=== PATIENT | male | born 1980 | race Caucasian/White ===

== ENCOUNTER 2016-07-05 08:19 | Day surgery (SDC) | payer MEDICAID ==
[2016-07-05] MEDS ORDERED: BACITRACIN INJ 50,000 UNIT VIAL INJ PRN (08:50)
[2016-07-05 09:53] LABS: ANION GAP 19 (5-19); BLOOD UREA NITROGEN 114 mg/dL (7-20); CALCIUM 10.4 mg/dL (8.4-10.2); CARBON DIOXIDE 24 mmol/L (22-30); CHLORIDE 97 mmol/L (98-107); CREATININE RESULT 9.42 mg/dL (0.52-1.25); GLUCOSE 109 mg/dL (75-110); POTASSIUM 3.8 mmol/L (3.6-5.0); SODIUM 140.3 mmol/L (137-145)
[2016-07-05] MEDS ORDERED: MIDAZOLAM 2 MG/2 ML INJ ONE (11:07)
[2016-07-05] MEDS ORDERED: FENTANYL CITRATE INJ/PF 100 MCG/2 ML AMPUL ONE (11:07)
[2016-07-05] MEDS ORDERED: LIDOCAINE 0.5% INJ-PF (5 MG/ML) 50 ML SDV ONE (11:10)
--- NOTE | 2016-07-05 11:30 | PDOC H&P ---
General Chief Complaint: The patient was admitted for insertion of a PermCath catheter. He is on hemodialysis for end-stage renal disease. A recently placed left arm fistula is barely palpable. He is therefore admitted for insertion of a new PermCath catheter. - Current Medications/Allergies Home Medications: Sodium Bicarbonate [Sodium Bicarbonate 650 mg Tablet] 30 mg PO DAILY 09/30/15 Sevelamer Carbonate [Renvela] 800 mg PO DAILY 05/07/16 Allergies/Adverse Reactions: No Known Allergies Allergy (Verified 07/05/16 08:55) Past Medical History Cardiac Medical History: Reports: Hypertension - HX OF Denies: Coronary Artery Disease, Myocardial Infarction Pulmonary Medical History: Denies: Asthma, Bronchitis, Chronic Obstructive Pulmonary Disease (COPD), Pneumonia Neurological Medical History: Denies: Seizures Musculoskeltal Medical History: Denies: Arthritis Psychiatric Medical History: Denies: Depression Hematology: Denies: Anemia Past Surgical History Past Surgical History: Reports: Other - Clipping of brain aneurysm. Within 2015. Family History Family History: Reviewed & Not Pertinent Parental Family History Reviewed: No Children Family History Reviewed: No Sibling(s) Family History Reviewed.: No Social History Smoking Status: Never Smoker Frequency of Alcohol Use: None Hx Recreational Drug Use: No Physical Exam Vital Signs: Temp Pulse Resp BP Pulse Ox 97.7 F 110 H 16 129/83 H 99 07/05/16 08:55 07/05/16 08:55 07/05/16 08:55 07/05/16 08:55 07/05/16 08:55 Intake & Output 07/04/16 07/05/16 07/06/16 06:59 06:59 06:59 Weight 98.883 kg Additional comments: A well-developed well-nourished male. No acute distress. Eyes membranes is pink and moist, sclerae anicteric. Respiratory no shortness of breath. Breath sounds are normal and equal bilaterally. Cardiac: Heart sounds 1 and 2 heard, no murmurs. Upper extremities show normal range of movement and pulsatile to the radials. Normal capillary refill. A cephalic to brachial fistula is appreciated. In the left upper extremity. Somewhat soft, suggesting minimal function. Psychiatric the patient is alert, oriented, judgment, memory, insight normal Impression/Plan Impression: #1 dislodged PermCath catheter. #2 end-stage renal disease on hemodialysis. #3 recent surgery for cerebral aneurysm. Plan: In this patient who is dependent on dialysis for treatment for end-stage renal disease insertion of a PermCath is to be done. The procedure, its risks, benefits, expected outcome alternatives of minute to the patient and he wishes to proceed. We will give him a dose of antibiotic, vancomycin and I will discuss with his drilling plant operator the wisdom of continuing antibiotics for perhaps up to 2 weeks. This is because the dislodgment is suspicious for a low-grade infection. We'll try to imply another side but if necessary will replaced in the right internal jugular.
[2016-07-05] MEDS ORDERED: VANCOMYCIN HCL 500 MG in DEXTROSE 5%-WATER 100 ML IV ONE (12:00)
--- NOTE | 2016-07-05 13:19 | PDOC DISCHARGE SUMMARY ---
Discharge Summary (SDC) - Discharge Final Diagnosis: #1 end-stage renal disease on hemodialysis. #2 history of moran aneurysm surgery. Date of Surgery: 07/05/16 Discharge Date: 07/05/16 Condition: Fair Treatment or Instructions: #1 activities within moderation encouraged. #2 follow up in my office by appointment in about 1 week. Call for appointment. #3 the wounds covered clean and dry until office visit. #4 hold off on school/work until evaluation in office. #5 may shower in 48 hours, keep operated area as dry as possible. #6 discharge from ambulatory to when ASU criteria met. #7 medications per medication reconciliation sheet. Discharge Diet: Other (Comments) - Renal Respiratory Treatments at Home: Deep Breathing/Coughing Discharge Activity: Activity As Tolerated Report the Following to Your Physician Immediately: Unusual Bleeding
--- NOTE | 2016-07-05 13:22 | Operative Report ---
Operative Report DATE OF SURGERY: 07/05/16 PREOPERATIVE DIAGNOSIS: #1 end-stage renal disease on hemodialysis. #2 history of moran aneurysm surgery. POSTOPERATIVE DIAGNOSIS: #1 end-stage renal disease on hemodialysis. #2 history of moran aneurysm surgery. OPERATION: #1 ultrasound guided needle access into left internal jugular vein. #2 insertion of PermCath catheter via left internal jugular vein. #3 and interpretation. SURGEON: SETH UGARTE JAIL GUARD: none ANESTHESIA: Moderate Sedation TISSUE REMOVED OR ALTERED: Not applicable. COMPLICATIONS: None ESTIMATED BLOOD LOSS: 2 mL. INTRAOPERATIVE FINDINGS: Satisfactorily sized left internal jugular vein to support permacatheter. Good position and function of the catheter. The tip well down in the right atrium. Fracture flow of contrast through the right atrium, ventricle and pulmonary outflow tract. PROCEDURE: After obtaining informed consent, the patient was taken to the Yarn Texture Machine Operator and positioned supine. The left neck and chest were prepared with chlorhexidine and draped out with sterile linen. After the " universal timeout", in which it was verified that the patient continued to receive antibiotic, the procedure commenced. A steriley sheathed ultrasound probe was used to evaluate the right internal jugular vein. Local anesthesia was infiltrated adjacent to the probe. Access into the right internal jugular vein was obtained using a micropuncture needle, followed by micropuncture wire and then a micropuncture catheter. This was followed by introduction of a 0.035 guidewire the tip of which was placed down into the inferior vena cava . A 28 cm long perm catheter was now positioned over the chest and an exit site marked and locally anesthetized ,the catheter was placed between the 2 incisions. Proximally, the catheter was now positioned using a peel-away sheath, after dilation. Easy ingress of heparinized solution and egress of blood obtained through both ports. A completion angiogram was done by injecting contrast. The findings were as dictated. The neck incision was now closed using interrupted 3-0 PDS to the subcutaneous tissues, the catheter was anchored at the exit site using 3- 0 PDS. A Biopatch device was now placed adjacent to the catheter. Dressings were applied and the procedure concluded. Exposure time: 0.7 minutes. Exposure: 26 cGy per centimeters squared. Contrast amount: 5 mL of [id number]-R-826 low osmolality. Copies of the dictated operative report for Dr. Seth aMrroquin MD.concluded. Copies of the dictated operative report for Dr. Seth Marroquin MD.
[2016-07-05 14:50] VITALS: BP 121/79
== END 2016-07-05 14:53 | disposition home or self-care (01) ==
LOC: CCL 08:19
PROVIDERS: ATTEND Surgery
PROC: 05HN33Z Insertion of Infusion Device into Left Internal Jugular Vein, Percutaneous Approach (ICD-10-PCS; principal; 2016-07-05)
DX: N18.6 End stage renal disease (principal); Z99.2 Dependence on renal dialysis
CPT/HCPCS: 36415; 80048; 36558; 76937; 77001; C1752; Q9967; J2250; J3490 ×2; J3010; J3370; J1644

== ENCOUNTER 2016-07-12 11:38 | Day surgery (SDC) | payer MEDICAID ==
[2016-07-12] MEDS ORDERED: CEFAZOLIN SODIUM 1 GM in DEXTROSE 5%-WATER 50 ML IV SCH (12:15)
[2016-07-12] MEDS ORDERED: MIDAZOLAM 2 MG/2 ML INJ ONE (12:36)
[2016-07-12] MEDS ORDERED: FENTANYL CITRATE INJ/PF 100 MCG/2 ML AMPUL ONE (12:36)
[2016-07-12] MEDS ORDERED: HEPARIN SOD (PORCINE) 5,000 UNIT/ML 1 ML SYRINGE ONE (12:36)
[2016-07-12] MEDS ORDERED: CEFAZOLIN INJ 1 GM VIAL ONE (12:46)
[2016-07-12] MEDS ORDERED: LIDOCAINE 0.5% INJ-PF (5 MG/ML) 50 ML SDV ONE (12:56)
--- NOTE | 2016-07-12 13:02 | PDOC H&P ---
General Chief Complaint: The patient has an arteriovenous fistula left arm which is not accessible for use. He is being dialyzed through a perm catheter. He is admitted today for fistula angiogram in the hope of enlarging it to accessibility. - Diagnosis (1) Dialysis AV fistula malfunction Is this a Current Diagnosis?: Yes (2) End-stage renal disease on hemodialysis Is this a Current Diagnosis?: Yes (3) History of cerebral aneurysm repair Is this a Current Diagnosis?: Yes (4) PCK (polycystic kidney disease) Is this a Current Diagnosis?: Yes - Current Medications/Allergies Home Medications: Sodium Bicarbonate [Sodium Bicarbonate 650 mg Tablet] 30 mg PO DAILY 09/30/15 Sevelamer Carbonate [Renvela] 800 mg PO DAILY 05/07/16 Allergies/Adverse Reactions: No Known Allergies Allergy (Verified 07/05/16 08:55) Past Medical History Cardiac Medical History: Reports: Hypertension - HX OF Denies: Coronary Artery Disease, Myocardial Infarction Pulmonary Medical History: Denies: Asthma, Bronchitis, Chronic Obstructive Pulmonary Disease (COPD), Pneumonia Neurological Medical History: Reports: Seizures Musculoskeltal Medical History: Denies: Arthritis Psychiatric Medical History: Denies: Depression Hematology: Denies: Anemia Past Surgical History Past Surgical History: Reports: Other - Clipping of brain aneurysm. Within 2015. Family History Family History: Reviewed & Not Pertinent Parental Family History Reviewed: No Children Family History Reviewed: No Sibling(s) Family History Reviewed.: No Social History Smoking Status: Former Smoker Frequency of Alcohol Use: None Hx Recreational Drug Use: No Physical Exam Vital Signs: Temp Pulse Resp BP Pulse Ox 98.3 F 96 16 127/82 H 98 07/12/16 12:55 07/12/16 12:55 07/12/16 12:55 07/12/16 12:55 07/12/16 12:55 Intake & Output 07/11/16 07/12/16 07/13/16 06:59 06:59 06:59 Weight 98 kg Additional comments: A well-developed well-nourished male. Mildly increased body habitus. No acute distress. Eyes membranes is pink and moist, sclerae anicteric. Respiratory no shortness of breath. Breath sounds are normal and equal bilaterally. Cardiac: Heart sounds 1 and 2 heard, no murmurs. Upper extremities show normal range of movement and pulsatile to the radials. Normal capillary refill. A cephalic to brachial fistula is appreciated. In the left upper extremity. Somewhat firm, suggesting cephalad stenosis. Psychiatric the patient is alert, oriented, judgment, memory, insight normal Impression/Plan Plan: In this patient with a fairly new arteriovenous fistula malfunction is appreciated. The bruit is obstructive with only about 4 cm palpable. The hope is to the fistula and to dilated distally so as to obtain a portion of fistula useful for for a dialysis access. The risks benefits expected outcome alternative are for minute to the patient.
--- NOTE | 2016-07-12 15:00 | PDOC DISCHARGE SUMMARY ---
Discharge Summary (SDC) - Discharge Final Diagnosis: #1 .malfunctioning arteriovenous fistula. #2 end-stage renal disease on hemodialysis. #3 history of cerebral aneurysm. #[address] Date of Surgery: 07/12/16 Discharge Date: 07/12/16 Condition: Fair Forms: ASU Anesthesia D/C Instruction, Discharge POC-Surgical Service Treatment or Instructions: #1 activities within moderation encouraged. #2 follow up in my office by appointment in about 1 week. Call for appointment. #3 the wounds covered clean and dry until office visit. #4 hold off on school/work until evaluation in office. #5 may shower in 48 hours, keep operated area as dry as possible. #6 discharge from ambulatory to when ASU criteria met. #7 medications per medication reconciliation sheet. Referrals: SETH KINGSLEY MD [ACTIVE STAFF] - Respiratory Treatments at Home: Deep Breathing/Coughing Discharge Activity: Activity As Tolerated, Balance Activity w/Rest, No Driving, No Lifting Over 10 Pounds, Slowly Increase Activity Home Care Assistance: None Needed Report the Following to Your Physician Immediately: Shortness of Breath, Fever over 101 Degrees, Unusual Bleeding, Redness, Swelling, Warmth, Numbness
--- NOTE | 2016-07-12 15:37 | Operative Report ---
Operative Report DATE OF SURGERY: 07/12/16 PREOPERATIVE DIAGNOSIS: #1 malfunctioning AV fistula. #2 end-stage renal disease on hemodialysis. #3 history of cerebral aneurysm. #[address] POSTOPERATIVE DIAGNOSIS: #1 malfunctioning AV fistula. #2 end-stage renal disease on hemodialysis. #3 history of cerebral aneurysm. #[address] OPERATION: #1 ultrasound guided access in left forearm AV fistula. #2 stage. # 3 angiogram and interpretation. SURGEON: SETH UGARTE CW OPERATOR: none ANESTHESIA: Moderate Sedation TISSUE REMOVED OR ALTERED: Not applicable. COMPLICATIONS: None ESTIMATED BLOOD LOSS: 2 mL. INTRAOPERATIVE FINDINGS: Of a palpable AV fistula. Retrograde. Based in the cephalic to brachial about 5 cm above the elbow. The fistula is easily palpable for a good 10 cm including above and below the elbow. The lead the fistula is not palpable nor visualized on ultrasound and diligent manipulation able to access the cephalic vein cephalad to the anastomosis. A number of stenosis each about 80% in the accessible area of the fistula were dilated up to 7 mm. The post procedure demonstrated much better of outflow although retrograde. Further intervention may be needed but there is significant hope that this could provide good access for this patient for the future. PROCEDURE: PROCEDURE: After verifying the procedure and having obtained informed consent, the patient's left arm and forearm were prepared with Chlorhexidine and draped out with sterile linen. Local anesthesia infiltrated. Percutaneous access into the fistula ,[retrograde], obtained about [20 cm] from the arteriovenous anastomosis using a micro puncture needle followed by micro puncture wire and then a micro puncture catheter. This was done on ultrasound guidance using real-time access into the vein. Ultrasound was also used to size the vein. Angiogram demonstrated the aforementioned findings. Angioplasty was elected. A 0.035 [place] wire was inserted, and over this, a 6 [place] short introducer was placed, this was followed by a 7 mm angioplasty balloon . Angioplasty was now done just before the anastomosis and perianastomotic segment. This was done very carefully and in the up to 10 emmanuel sustained for 2 minutes. Angiogram demonstrated successful outcome. Completion angiogram demonstrated [satisfactory result]. The instrumentation was now withdrawn over a short piece of catheter and a pressure for 10 minutes. Dressings applied, procedure concluded. Exposure time: 3 minutes Radiation: 3 julia per centimeter squared Contrast: 25 mL of Isovue-M 300 low osmolality. DICTATING PHYSICIAN: SETH KINGSLEY M.D. cc: SETH KINGSLEY M.D. ([id number]) >>
[2016-07-12 16:27] VITALS: BP 118/71
== END 2016-07-12 15:30 | disposition home or self-care (01) ==
LOC: CCL 11:38
PROVIDERS: ATTEND Surgery
PROC: 057F3DZ Dilation of Left Cephalic Vein with Intraluminal Device, Percutaneous Approach (ICD-10-PCS; principal; 2016-07-12)
DX: T82.858A Stenosis of other vascular prosthetic devices, implants and grafts, initial encounter (principal); Y83.2 Surgical operation with anastomosis, bypass or graft as the cause of abnormal reaction of the patient, or of later complication, without mention of misadventure at the time of the procedure; N18.6 End stage renal disease; Z99.2 Dependence on renal dialysis; Z79.899 Other long term (current) drug therapy; Q61.3 Polycystic kidney, unspecified
CPT/HCPCS: 36902; 76937; C1752; C1725; C1887; Q9967; C1769; J2250; J1644 ×2; J0690; J3010; J3490; 36901

== ENCOUNTER 2016-07-23 14:02 | Emergency (ER) | payer MEDICAID ==
--- NOTE | 2016-07-23 14:17 | ER Document Report ---
ED Medical Screen (RME) - General Stated Complaint: DIFFICULTY BREATHING,LEFT BACK PAIN Time seen by provider: 14:12 Mode of Arrival: Wheelchair Information source: Patient Notes: 36-year-old male presents to ED for sharp upper back pain that sometimes goes through to his chest. He had a dialysis catheter placed on the left chest 2 or 3 weeks ago. He states that the pain is stabbing. I have greeted and performed a rapid initial assessment of this patient. A comprehensive ED assessment and evaluation of the patient, analysis of test results and completion of medical decision making process will be conducted by an additional ED providers. TRAVEL OUTSIDE OF THE [place] IN LAST 30 DAYS: No - Related Data Allergies/Adverse Reactions: No Known Allergies Allergy (Verified 07/23/16 14:12) Past Medical History - Past Medical History Cardiac Medical History: Reports: Hx Hypertension - HX OF Denies: Hx Coronary Artery Disease, Hx Heart Attack Pulmonary Medical History: Denies: Hx Asthma, Hx Bronchitis, Hx COPD, Hx Pneumonia Neurological Medical History: Reports: Hx Seizures. Denies: Hx Cerebrovascular Accident Musculoskeltal Medical History: Denies Hx Arthritis Psychiatric Medical History: Denies: Hx Depression Past Surgical History: Reports: Other - Clipping of brain aneurysm. Within 2015. - Immunizations Hx Diphtheria, Pertussis, Tetanus Vaccination: Yes - unk Physical Exam - Vital signs Vitals: Temp Pulse Resp BP Pulse Ox 97.2 F 113 H 20 151/85 H 100 07/23/16 14:11 07/23/16 14:11 07/23/16 14:11 07/23/16 14:11 07/23/16 14:11 Course - Vital Signs Vital signs: Temp Pulse Resp BP Pulse Ox 97.2 F 113 H 20 151/85 H 100 07/23/16 14:11 07/23/16 14:11 07/23/16 14:11 07/23/16 14:11 07/23/16 14:11
--- NOTE | 2016-07-23 15:08 | ER Document Report ---
ED General Pain - General Time seen by provider: 15:00 Mode of Arrival: Wheelchair Information source: Patient TRAVEL OUTSIDE OF THE [place] IN LAST 30 DAYS: No - HPI Onset: This afternoon Quality of pain: Sharp, Stabbing <ANA JC - Last Filed: 07/23/16 18:03> <ALFREDO DUKEHANMAX GHOSH - Last Filed: 07/23/16 23:29> - General Chief Complaint: Back Pain Stated Complaint: DIFFICULTY BREATHING,LEFT BACK PAIN Notes: Patient is a 36-year-old male presents the emergency department with complaints of back pain. Patient states that while he was eating lunch he started having some stabbing back pain. Patient states that his pain radiated around into his abdomen one time. Patient states that his pain is exacerbated while breathing deeply. Patient is in renal failure and has dialysis tomorrow07/24. Patient's dialysis doctor is Dr. Prince. Patient has no known allergies. (ANA JC) - Related Data Allergies/Adverse Reactions: No Known Allergies Allergy (Verified 07/23/16 14:12) Past Medical History - General Information source: Patient - Social History Smoking Status: Unknown if Ever Smoked Chew tobacco use (# tins/day): No Frequency of alcohol use: None Drug Abuse: None Family History: None, Reviewed & Not Pertinent Patient has suicidal ideation: No Patient has homicidal ideation: No - Past Medical History Cardiac Medical History: Reports: Hx Hypertension - HX OF Neurological Medical History: Reports: Hx Seizures Past Surgical History: Reports: Other - Clipping of brain aneurysm. Within 2016. - Immunizations Hx Diphtheria, Pertussis, Tetanus Vaccination: Yes - unk <ANA JC - Last Filed: 07/23/16 18:03> Review of Systems - Review of Systems Constitutional: No symptoms reported EENT: No symptoms reported Cardiovascular: No symptoms reported Respiratory: See HPI, Hurts to breathe Gastrointestinal: No symptoms reported Genitourinary: No symptoms reported Male Genitourinary: No symptoms reported Musculoskeletal: See HPI, Back pain Skin: No symptoms reported Hematologic/Lymphatic: No symptoms reported Neurological/Psychological: No symptoms reported -: Yes All other systems reviewed and negative <ANA JC - Last Filed: 07/23/16 18:03> Physical Exam - Vital signs Interpretation: Normal - General General appearance: Appears well, Alert - HEENT Head: Normocephalic, Atraumatic Eyes: Normal Pupils: PERRL - Respiratory Respiratory status: No respiratory distress Chest status: Tender - Tenderness to palpation of posterior left upper back, lateral chest wall on the left, Pain on movement Breath sounds: Normal Chest palpation: Normal - Cardiovascular Rhythm: Regular Heart sounds: Normal auscultation Murmur: No - Abdominal Inspection: Normal Distension: No distension Bowel sounds: Normal Tenderness: Nontender Organomegaly: No organomegaly - Back Back: Normal, Nontender - Extremities General upper extremity: Normal inspection, Nontender, Normal color, Normal ROM , Normal temperature General lower extremity: Normal inspection, Nontender, Normal color, Normal ROM , Normal temperature, Normal weight bearing. No: Marco Antonio's sign - Neurological Neuro grossly intact: Yes Cognition: Normal Orientation: AAOx4 Sriram Coma Scale Eye Opening: Spontaneous P[place] Coma Scale Verbal: Oriented Sriram Coma Scale Motor: Obeys Commands Prewitt Coma Scale Total: 15 Speech: Normal Motor strength normal: LUE, RUE, LLE, RLE Sensory: Normal - Psychological Associated symptoms: Normal affect, Normal mood - Skin Skin Temperature: Warm Skin Moisture: Dry Skin Color: Normal <ANUSHKA DUKE - Last Filed: 07/23/16 23:29> - Vital signs Vitals: Temp Pulse Resp BP Pulse Ox 97.2 F 113 H 20 151/85 H 100 07/23/16 14:11 07/23/16 14:11 07/23/16 14:11 07/23/16 14:11 07/23/16 14:11 (ANA JC) (ANUSHKA DUKE) Course - Laboratory Result Diagrams: 07/23/16 14:28 07/23/16 14:28 - Consults Dr. Prince Time consulted: 17:10 <ANA JC - Last Filed: 07/23/16 18:03> - Laboratory Result Diagrams: 07/23/16 14:28 07/23/16 14:28 - Diagnostic Test Radiology reviewed: Reports reviewed <ANUSHKA DUKE - Last Filed: 07/23/16 23:29> - Re-evaluation Re-evalutation: 07/23/16 Patient with elevated d-dimer. Otherwise no findings. Patient is resting comfortably on the bed after pain medication states that he is feeling much better. VQ scan is negative for pulmonary embolus. Patient will be discharged home and is to follow-up with his community engagement leader. He is to go to dialysis tomorrow. Return immediately if any worsening or concerning symptoms. Stable for discharge home. (ANUSHKA DUKE) - Vital Signs Vital signs: Temp Pulse Resp BP Pulse Ox 98.4 F 111 H 20 138/74 H 97 07/23/16 19:40 07/23/16 19:40 07/23/16 19:40 07/23/16 19:40 07/23/16 19:40 (ANA JC) (ANUSHKA DUKE) - Laboratory Laboratory results interpreted by me: 07/23/16 07/23/16 07/23/16 14:28 14:28 14:28 RDW 15.9 H Seg Neutrophils % 79.1 H Lymphocytes % 11.6 L D-Dimer 2.58 H Chloride 94 L BUN 64 H Creatinine 8.13 H Est GFR ( Amer) 9 L Est GFR (Non-Af Amer) 8 L Glucose 161 H Calcium 10.6 H (ANUSHKA DUKE) - Consults Dr. Prince Reason for consultation: 07/23/16 17:[address] Prince for recommendations for patient, will call back. 07/23/16 17:[address] Prince who gives recommendations of care for patient. (ANA JC) Discharge <ANA JC - Last Filed: 07/23/16 18:03> <ANUSHKA DUKE - Last Filed: 07/23/16 23:29> - Discharge Clinical Impression: End-stage renal disease on hemodialysis Back pain Qualifiers: Back pain location: thoracic back pain Chronicity: acute Back pain laterality: left Qualified Code(s): M54.6 - Pain in thoracic spine Condition: Stable Disposition: HOME, SELF-CARE Prescriptions: Oxycodone HCl/Acetaminophen [Percocet 5-325 mg Tablet] 1 tab PO Q4H PRN #15 tablet PRN Reason: Referrals: EUNICE PRINCE MD [ACTIVE STAFF] - Follow up in 3-5 days Scribe Attestation: 07/23/16 23:29 I personally performed the services described in the documentation, reviewed and edited the documentation which was dictated to the scribe in my presence, and it accurately records my words and actions. (ANUSHKA DUKE) Scribe Documentation - Scribe Written by Scribkurtis:: Ana Jc 07/23/16 18:00 acting as scribe for :: Ralph <ANA JC - Last Filed: 07/23/16 18:03>
[2016-07-23 15:21] LABS: ABSOLUTE EOSINOPHILS # (AUTO) 0.1 10^3/uL (0.0-0.6); ABSOLUTE LYMPHOCYTES (AUTO) 0.8 10^3/uL (0.5-4.7); ABSOLUTE MONOCYTES (AUTO) 0.5 10^3/uL (0.1-1.4); ABSOLUTE NEUT (AUTO) 5.5 10^3/uL (1.7-8.2); BASOPHILS % (AUTO) 0.6 % (0-2); EOSINOPHILS % (AUTO) 2.1 % (0-6); HEMATOCRIT 43.5 % (37.9-51.0); HEMOGLOBIN 14.3 g/dL (13.5-17.0); HGB HCT DIFFERENCE -0.6; LYMPHOCYTES % (AUTO) 11.6 % (13-45); MEAN CORPUSCULAR HEMOGLOBIN 29.7 pg (27.0-33.4); MEAN CORPUSCULAR VOLUME 90 fl (80-97); MONOCYTES % (AUTO) 6.6 % (3-13); RED BLOOD COUNT 4.84 10^6/uL (4.35-5.55); RED CELL DISTRIBUTION WIDTH 15.9 % (11.5-14.0); SEGMENTED NEUTROPHILS % (AUTO) 79.1 % (42-78); WHITE BLOOD COUNT 6.9 10^3/uL (4.0-10.5)
[2016-07-23 15:49] LABS: PROTHROMBIN TIME 12.9 SEC (11.4-15.4)
[2016-07-23 16:03] LABS: ALANINE AMINOTRANSFERASE 42 U/L (21-72); ALKALINE PHOSPHATASE 97 U/L (38-126); ANION GAP 17 (5-19); ASPARTATE AMINO TRANSFERASE 17 U/L (17-59); BILIRUBIN,TOTAL 0.5 mg/dL (0.2-1.3); BLOOD UREA NITROGEN 64 mg/dL (7-20); CALCIUM 10.6 mg/dL (8.4-10.2); CARBON DIOXIDE 28 mmol/L (22-30); CHLORIDE 94 mmol/L (98-107); CREATININE RESULT 8.13 mg/dL (0.52-1.25); GLUCOSE 161 mg/dL (75-110); POTASSIUM 4.6 mmol/L (3.6-5.0); SODIUM 139.1 mmol/L (137-145); TOTAL PROTEIN 7.2 g/dL (6.3-8.2)
[2016-07-23] MEDS ORDERED: MORPHINE SULFATE 10 MG/ML INJ IV ONE (16:28)
[2016-07-23] MEDS ORDERED: ONDANSETRON HCL INJ/PF 4 MG/2 ML SDV IV ONE (16:28)
[2016-07-23 19:45] VITALS: BP 138/74
== END 2016-07-23 19:45 | disposition home or self-care (01) ==
LOC: ER 14:02
DX: M54.6 Pain in thoracic spine (principal); I12.0 Hypertensive chronic kidney disease with stage 5 chronic kidney disease or end stage renal disease; N18.6 End stage renal disease; Z99.2 Dependence on renal dialysis
CPT/HCPCS: 99284; 96374; 96375; 36415; 85025; 85610; 85730; 80053; 84484; 85379; 71020; 78582; A9540; A9567; J2270; J2405; Q9969

== ENCOUNTER 2016-08-02 05:37 | Day surgery (SDC) | payer MEDICAID ==
[2016-08-02 06:14] LABS: HEMATOCRIT 39.6 % (37.9-51.0); HEMOGLOBIN 13.8 g/dL (13.5-17.0); HGB HCT DIFFERENCE 1.8; MEAN CORPUSCULAR HEMOGLOBIN 30.7 pg (27.0-33.4); MEAN CORPUSCULAR HGB CONC 34.8 g/dL (32.0-36.0); MEAN CORPUSCULAR VOLUME 88 fl (80-97); RED BLOOD COUNT 4.49 10^6/uL (4.35-5.55); RED CELL DISTRIBUTION WIDTH 16.5 % (11.5-14.0); WHITE BLOOD COUNT 7.6 10^3/uL (4.0-10.5)
[2016-08-02 06:24] LABS: PARTIAL THROMBOPLASTIN TIME 29.2 SEC (23.5-35.8)
[2016-08-02 06:35] LABS: ANION GAP 18 (5-19); BLOOD UREA NITROGEN 82 mg/dL (7-20); CALCIUM 9.9 mg/dL (8.4-10.2); CARBON DIOXIDE 20 mmol/L (22-30); CHLORIDE 102 mmol/L (98-107); GLUCOSE 102 mg/dL (75-110); POTASSIUM 3.5 mmol/L (3.6-5.0); SODIUM 140.3 mmol/L (137-145)
[2016-08-02] MEDS ORDERED: LIDOCAINE 0.5% INJ-PF (5 MG/ML) 50 ML SDV ONE (07:12)
[2016-08-02] MEDS ORDERED: MIDAZOLAM 2 MG/2 ML INJ ONE (07:34)
[2016-08-02] MEDS ORDERED: FENTANYL CITRATE INJ/PF 100 MCG/2 ML AMPUL ONE (07:34)
[2016-08-02] MEDS ORDERED: HEPARIN SOD (PORCINE) 5,000 UNIT/ML 1 ML SYRINGE ONE (07:35)
[2016-08-02] MEDS ORDERED: BACITRACIN INJ 50,000 UNIT VIAL IR PRN (07:54)
[2016-08-02] MEDS ORDERED: CEFAZOLIN INJ 1 GM VIAL ONE (08:23)
--- NOTE | 2016-08-02 09:13 | PDOC DISCHARGE SUMMARY ---
Discharge Summary (SDC) - Discharge Final Diagnosis: AV fistula malfunction. #2 end-stage renal disease. #3 history of cerebral aneurysm. Date of Surgery: 08/02/16 Discharge Date: 08/02/16 Condition: Fair Treatment or Instructions: #1 discharge patient home after achieving ASU criteria. #2 continue medications per medication reconciliation sheet. #3 follow-up in office by appointment in about 1 week, call for appointment. #4 dressing to be left on until office. #5 continue scheduled hemodialysis. Through PermCath. #6 may shower starting in 48 hours. Important to keep dressings clean and dry Discharge Diet: Other (Comments) - Renal Respiratory Treatments at Home: Deep Breathing/Coughing Discharge Activity: Activity As Tolerated
[2016-08-02 10:08] VITALS: BP 128/79
--- NOTE | 2016-08-02 18:47 | PDOC H&P ---
General Chief Complaint: This patient presents because of a malfunctioning left arm AV fistula. The fistula has been working for about a week quite well. His permacatheter was removed only about 7 days ago. Unfortunately it has ceased to function adequately and is therefore referred for intervention or possibly PermCath insertion. - Diagnosis (1) Dialysis AV fistula malfunction Is this a Current Diagnosis?: Yes (2) Encounter for hemodialysis for end-stage renal disease Is this a Current Diagnosis?: Yes (3) History of cerebral aneurysm repair Is this a Current Diagnosis?: Yes - Current Medications/Allergies Home Medications: Sodium Bicarbonate [Sodium Bicarbonate 650 mg Tablet] 30 mg PO DAILY 09/30/15 Sevelamer Carbonate [Renvela] 800 mg PO DAILY 05/07/16 Allergies/Adverse Reactions: No Known Allergies Allergy (Verified 07/23/16 14:12) Past Medical History Cardiac Medical History: Reports: Hypertension - HX OF Denies: Coronary Artery Disease, Myocardial Infarction Pulmonary Medical History: Denies: Asthma, Bronchitis, Chronic Obstructive Pulmonary Disease (COPD), Pneumonia Neurological Medical History: Denies: Seizures Musculoskeltal Medical History: Denies: Arthritis Psychiatric Medical History: Denies: Depression Hematology: Denies: Anemia Past Surgical History Past Surgical History: Reports: Other - Clipping of brain aneurysm. Within 2015. Family History Family History: None, Reviewed & Not Pertinent Parental Family History Reviewed: No Children Family History Reviewed: No Sibling(s) Family History Reviewed.: No Social History Smoking Status: Never Smoker Frequency of Alcohol Use: None Hx Recreational Drug Use: No Physical Exam Vital Signs: Temp Pulse Resp BP Pulse Ox 98.1 F 80 16 128/79 H 99 08/02/16 09:45 08/02/16 09:45 08/02/16 09:45 08/02/16 09:45 08/02/16 09:45 Intake & Output 08/01/16 08/02/16 08/03/16 06:59 06:59 06:59 Weight 98.43 kg Additional comments: A well-developed well-nourished male. Mildly increased body habitus. No acute distress. Eyes membranes is pink and moist, sclerae anicteric. Respiratory no shortness of breath. Breath sounds are normal and equal bilaterally. Cardiac: Heart sounds 1 and 2 heard, no murmurs. Upper extremities show normal range of movement and pulsatile to the radials. Normal capillary refill. A cephalic to brachial fistula is appreciated. In the left upper extremity. Somewhat firm, with no real. Psychiatric the patient is alert, oriented, judgment, memory, insight normal Impression/Plan Plan: The plan is to do a fistula angiogram and angioplasty. Failing that PermCath insertion. The procedures, their risks, benefits and expected outcome were gone over with the patient. And we will proceed.
--- NOTE | 2016-08-02 18:53 | Operative Report ---
Operative Report DATE OF SURGERY: 08/02/16 PREOPERATIVE DIAGNOSIS: #1 functioning AV fistula, left brachiocephalic. #2 end -stage renal disease on hemodialysis. #3 history of cerebral aneurysm. #4 hypertension. POSTOPERATIVE DIAGNOSIS: #1 functioning AV fistula, left brachiocephalic. #2 end-stage renal disease on hemodialysis. #3 history of cerebral aneurysm. #4 hypertension. OPERATION: #1 ultrasound evaluation of left arm AV fistula. #2 ultrasound directed real-time access in the right internal jugular vein. #3 PermCath insertion via right internal jugular vein. #4 angiogram and interpretation. SURGEON: SETH UGARTE ENVIRONMENTAL REMEDIATION SPECIALIST: none ANESTHESIA: Moderate Sedation TISSUE REMOVED OR ALTERED: Not applicable. COMPLICATIONS: None ESTIMATED BLOOD LOSS: 5 mL. INTRAOPERATIVE FINDINGS: Of a completely clotted left arm AV fistula. Thrombus observed right up to the brachial artery. The brachial artery itself nice and patent. Given the Rico failure of good fistulas in this patient, this is the third, attempts at thrombectomy seem unlikely to succeed. A robust right internal jugular vein noted in normal relation to the carotid artery. The vein about 1.5 cm in diameter. The vein quite adequate to support to perm catheter. The perm catheter placed with the tips well down in the right atrial pool. Easy egress of blood and ingress of heparinized solution through both ports. Angiogram demonstrates Rico flow of contrast through the right atrium, ventricle and pulmonary outflow tract. PROCEDURE: After obtaining informed consent, the patient was taken to the [facility] and positioned supine. The left arm prepared with chlorhexidine and draped out with sterile linen. A sterilely sheath ultrasound probe used to evaluate the fistula with the above findings. Based on the findings and the quite considerable amount of interventions for fistula which involved failed it was decided to proceed with a PermCath insertion. The right neck and chest were prepared with chlorhexidine and draped out with sterile linen. After the " universal timeout", in which it was verified that the patient continued to receive antibiotic, the procedure commenced. A steriley sheathed ultrasound probe was used to evaluate the right internal jugular vein. Local anesthesia was infiltrated adjacent to the probe. Access into the right internal jugular vein was obtained using a micropuncture needle, followed by micropuncture wire and then a micropuncture catheter. This was followed by introduction of a 0.035 guidewire the tip of which was placed down into the inferior vena cava . A 23 cm long split catheter was now positioned over the chest and an exit site marked and locally anesthetized ,the catheter was placed between the 2 incisions. Proximally, the catheter was now positioned using a peel-away sheath, after dilation. Easy ingress of heparinized solution and egress of blood obtained through both ports. A completion angiogram was done by injecting contrast. The findings were as dictated. The neck incision was now closed using interrupted 3-0 PDS to the subcutaneous tissues, the catheter was anchored at the exit site using 3-0 PDS. A Biopatch device was now placed adjacent to the catheter. Dressings were applied and the procedure concluded. Exposure time: 0. 6 minutes. Exposure: 35 cGy per centimeters squared. Contrast amount: 5 mL of [id number] low osmolality. Copies of the dictated operative report for Dr. Seth Marroquin MD.concluded. Copies of the dictated operative report for Dr. Seth Marroquin MD.
== END 2016-08-02 09:45 | disposition home or self-care (01) ==
LOC: ASU 05:37
PROVIDERS: ATTEND Surgery
PROC: 05HM33Z Insertion of Infusion Device into Right Internal Jugular Vein, Percutaneous Approach (ICD-10-PCS; principal; 2016-08-02)
DX: T82.858A Stenosis of other vascular prosthetic devices, implants and grafts, initial encounter (principal); Y83.2 Surgical operation with anastomosis, bypass or graft as the cause of abnormal reaction of the patient, or of later complication, without mention of misadventure at the time of the procedure; N18.6 End stage renal disease; Z99.2 Dependence on renal dialysis; Q61.3 Polycystic kidney, unspecified
CPT/HCPCS: 36415; 85027; 85610; 85730; 80048; 36558; 76937; 77001; C1752; J2250; J3490 ×2; J0690; J3010; J1644

== ENCOUNTER 2017-02-15 17:24 | Emergency (ER) | payer MEDICAID ==
--- NOTE | 2017-02-15 18:28 | ER Document Report ---
HPI - HPI Patient complains to provider of: Right shoulder injury Onset: This afternoon Onset/Duration: Sudden Quality of pain: Achy Pain Level: 4 Context: Patient states that he slipped going downstairs and fell onto an outstretched hand jarring his right shoulder. Patient complains of pain with lifting or moving his right shoulder. Associated Symptoms: Other - Right shoulder joint pain Exacerbated by: Movement Relieved by: Denies Similar symptoms previously: No Recently seen / treated by doctor: No - ROS ROS below otherwise negative: Yes Systems Reviewed and Negative: Yes All other systems reviewed and negative - NEURO Neurology: DENIES: Weakness - CARDIOVASCULAR Cardiovascular: DENIES: Chest pain - MUSCULOSKELETAL Musculoskeletal: REPORTS: Extremity pain. DENIES: Swelling - DERM Skin Color: Normal Skin Problems: None Past Medical History - General Information source: Patient - Social History Smoking Status: Never Smoker Frequency of alcohol use: None Drug Abuse: None Occupation: None Lives with: Family Family History: None, Reviewed & Not Pertinent Patient has suicidal ideation: No Patient has homicidal ideation: No - Past Medical History Cardiac Medical History: Reports: Hx Hypertension - HX OF Denies: Hx Coronary Artery Disease, Hx Heart Attack Pulmonary Medical History: Denies: Hx Asthma, Hx Bronchitis, Hx COPD, Hx Pneumonia Neurological Medical History: Denies: Hx Cerebrovascular Accident, Hx Seizures Renal/ Medical History: Reports: Hx End Stage Renal Disease, Hx Hemodialysis. Denies: Hx Peritoneal Dialysis Musculoskeltal Medical History: Denies Hx Arthritis Psychiatric Medical History: Denies: Hx Depression Past Surgical History: Reports: Hx Herniorrhaphy, Hx Vascular Surgery - fistula , Other - Clipping of brain aneurysm. Within 2015. - Immunizations Hx Diphtheria, Pertussis, Tetanus Vaccination: Yes - unk Vertical Provider Document - CONSTITUTIONAL Agree With Documented VS: Yes Exam Limitations: No Limitations General Appearance: WD/WN, No Apparent Distress - INFECTION CONTROL TRAVEL OUTSIDE OF THE [place] IN LAST 30 DAYS: No - HEENT HEENT: Atraumatic, Normocephalic - NECK Neck: Normal Inspection - RESPIRATORY Respiratory: No Respiratory Distress O2 Sat by Pulse Oximetry: 100 - CARDIOVASCULAR Pulses: Normal: Radial - BACK Back: Normal Inspection - MUSCULOSKELETAL/EXTREMETIES Musculoskeletal/Extremeties: MAEW, Tender - Patient with tenderness over humeral head of right shoulder, no deformity or dislocation, tenderness increases with extension and abduction. negative: No Edema, Eccymosis - NEURO Level of Consciousness: Awake, Appropriate Motor/Sensory: No Motor Deficit - DERM Integumentary: Warm, Dry, No Rash Course - Re-evaluation Re-evalutation: 02/15/17 20:32 The patient has been informed that they may have pre-hypertension or hypertension based on a blood pressure reading in the emergency department. I recommend that patient call the primary care provider listed on their discharge instructions or a physician of their choice by this week to arrange follow-up for further evaluation of possible pre-hypertension or hypertension. - Vital Signs Vital signs: Temp Pulse Resp BP Pulse Ox 97.3 F 75 18 142/87 H 100 02/15/17 17:53 02/15/17 17:53 02/15/17 17:53 02/15/17 17:53 02/15/17 17:53 - Diagnostic Test Radiology reviewed: Image reviewed, Reports reviewed Procedures - Immobilization Right Shoulder Pre-Proc Neuro Vasc Exam: Normal Immobilizer type: Shoulder immobilizer Performed by: PCT Post-Proc Neuro Vasc Exam: Normal Alignment checked and good: Yes Discharge - Discharge Clinical Impression: Fall Qualifiers: Encounter type: initial encounter Qualified Code(s): W19.XXXA - Unspecified fall, initial encounter Sprain of shoulder, right Qualifiers: Encounter type: initial encounter Shoulder sprain type: unspecified sprain Qualified Code(s): S43.401A - Unspecified sprain of right shoulder joint, initial encounter Condition: Stable Disposition: HOME, SELF-CARE Instructions: Ice & Elevation ([facility]), Shoulder Injury ([facility]), Temporary Sling ( [facility]) Additional Instructions: Return immediately for any new or worsening symptoms Followup with your primary care provider, call tomorrow to make a followup appointment Follow-up with orthopedic doctor for any continued pain or problems Wear sling for the next 4 days and then remove. If still having pain follow-up with orthopedics Referrals: [facility] [Provider Group] - Follow up as needed
--- NOTE | 2017-02-15 18:49 | RADIOLOGY REPORT (SQ) ---
EXAM DESCRIPTION: SHOULDER RIGHT 2 OR MORE VIEWS COMPLETED DATE/TIME: 02/15/2017 6:42 pm REASON FOR STUDY: fall, shoulder injury COMPARISON: None. NUMBER OF VIEWS: Three views. TECHNIQUE: Internal rotation, external rotation, and Y view images acquired of the right shoulder. LIMITATIONS: None. FINDINGS: MINERALIZATION: Normal. BONES: No acute fracture or dislocation. No worrisome bone lesions. JOINTS: No dislocation. VISUALIZED LUNGS AND RIBS: No pneumothorax. No rib fracture. SOFT TISSUES: No radiopaque foreign body. OTHER: Right central venous catheter visualized. IMPRESSION: NEGATIVE STUDY OF THE RIGHT SHOULDER. NO RADIOGRAPHIC EVIDENCE OF ACUTE INJURY. TECHNICAL DOCUMENTATION: JOB ID: [id number] [employer]- All Rights Reserved
[2017-02-15 19:32] VITALS: BP 126/77
== END 2017-02-15 19:29 | disposition home or self-care (01) ==
LOC: ER 17:24
DX: S43.401A Unspecified sprain of right shoulder joint, initial encounter (principal); W10.9XXA Fall (on) (from) unspecified stairs and steps, initial encounter; Y92.009 Unspecified place in unspecified non-institutional (private) residence as the place of occurrence of the external cause; I12.0 Hypertensive chronic kidney disease with stage 5 chronic kidney disease or end stage renal disease; N18.6 End stage renal disease; Z99.2 Dependence on renal dialysis
CPT/HCPCS: 99284; 73030; L3650

== ENCOUNTER → 2017-03-22 | Outpatient (CLI) | payer MEDICAID | LOC: OD 08:45 | PROVIDERS: ATTEND Internal Medicine Nephrology | DX: I95.9 Hypotension, unspecified (principal) | CPT/HCPCS: 36415; 82533 ==

== ENCOUNTER 2018-12-28 04:22 | Emergency (ER) | payer MEDICARE, MEDICAID ==
[2018-12-28 05:37] LABS: ABSOLUTE EOSINOPHILS # (AUTO) 0.1 10^3/uL (0.0-0.6); ABSOLUTE LYMPHOCYTES (AUTO) 0.8 10^3/uL (0.5-4.7); ABSOLUTE MONOCYTES (AUTO) 0.7 10^3/uL (0.1-1.4); ABSOLUTE NEUT (AUTO) 5.9 10^3/uL (1.7-8.2); BASOPHILS % (AUTO) 0.5 % (0-2); EOSINOPHILS % (AUTO) 1.8 % (0-6); HEMATOCRIT 47.8 % (37.9-51.0); HEMOGLOBIN 16.6 g/dL (13.5-17.0); LYMPHOCYTES % (AUTO) 10.1 % (13-45); MEAN CORPUSCULAR HEMOGLOBIN 31.1 pg (27.0-33.4); MEAN CORPUSCULAR HGB CONC 34.7 g/dL (32.0-36.0); MEAN CORPUSCULAR VOLUME 90 fl (80-97); MONOCYTES % (AUTO) 9.2 % (3-13); PLATELET COUNT 131 10^3/uL (150-450); RED BLOOD COUNT 5.34 10^6/uL (4.35-5.55); RED CELL DISTRIBUTION WIDTH 16.2 % (11.5-14.0); SEGMENTED NEUTROPHILS % (AUTO) 78.4 % (42-78); TOTAL CELLS COUNTED % (AUTO) 100 %; WHITE BLOOD COUNT 7.5 10^3/uL (4.0-10.5)
[2018-12-28 05:41] LABS: APPEARANCE,URINE CLEAR; BILIRUBIN,URINE NEGATIVE (NEGATIVE); COLOR,URINE YELLOW; GLUCOSE, URINE 50 mg/dL (NEGATIVE); KETONES,URINE NEGATIVE (NEGATIVE); LEUKOCYTE ESTERASE,URINE SMALL (NEGATIVE); NITRITE,URINE NEGATIVE (NEGATIVE); PROTEIN,URINE 100 mg/dL (NEGATIVE); URINE SPECIFIC GRAVITY 1.009; UROBILINOGEN,URINE NEGATIVE mg/dL (<2.0)
[2018-12-28 05:57] LABS: ALANINE AMINOTRANSFERASE 25 U/L (21-72); ALBUMIN 4.3 g/dL (3.5-5.0); ALKALINE PHOSPHATASE 413 U/L (38-126); ANION GAP 15 (5-19); ASPARTATE AMINO TRANSFERASE 22 U/L (17-59); BILIRUBIN,DIRECT 0.5 mg/dL (0.0-0.4); BILIRUBIN,TOTAL 0.8 mg/dL (0.2-1.3); BLOOD UREA NITROGEN 50 mg/dL (7-20); CALCIUM 7.8 mg/dL (8.4-10.2); CARBON DIOXIDE 27 mmol/L (22-30); CHLORIDE 97 mmol/L (98-107); GLUCOSE 106 mg/dL (75-110); LIPASE 121.8 U/L (23-300); POTASSIUM 4.3 mmol/L (3.6-5.0); SODIUM 138.5 mmol/L (137-145); TOTAL PROTEIN 7.9 g/dL (6.3-8.2)
--- NOTE | 2018-12-28 08:33 | ER Document Report ---
ED General - General Chief Complaint: Possible Kidney Stone Stated Complaint: FLANK PAIN Time Seen by Provider: 12/28/18 08:18 Primary Care Provider: Olegario MAYBERRY MD [Primary Care Provider] - Follow up as needed Notes: 38-year-old male with history of PCOS and ESRD on dialysis who makes urine presents to the emergency department with chief complaint of left flank pain since noon yesterday. Dates this happened after dialysis. Denies fevers or chills, nausea or vomiting, shortness of breath or chest pain. Denies any urinary frequency, dysuria, urgency. Denies seeing any blood in his urine. Patient does state that he has history of microscopic hematuria. Patient states the pain is constant and sharp not consistent with previous PCOS exacerbations. TRAVEL OUTSIDE OF THE [place] IN LAST 30 DAYS: No - Related Data Allergies/Adverse Reactions: No Known Allergies Allergy (Verified 02/15/17 17:53) Past Medical History - Social History Smoking Status: Unknown if Ever Smoked Family History: None, Reviewed & Not Pertinent Patient has suicidal ideation: No Patient has homicidal ideation: No - Past Medical History Cardiac Medical History: Reports: Hx Hypertension - HX OF Denies: Hx Coronary Artery Disease, Hx Heart Attack Pulmonary Medical History: Denies: Hx Asthma, Hx Bronchitis, Hx COPD, Hx Pneumonia Neurological Medical History: Denies: Hx Cerebrovascular Accident, Hx Seizures Renal/ Medical History: Reports: Hx End Stage Renal Disease, Hx Hemodialysis. Denies: Hx Peritoneal Dialysis Musculoskeletal Medical History: Denies Hx Arthritis Psychiatric Medical History: Denies: Hx Depression Past Surgical History: Reports: Hx Herniorrhaphy, Hx Vascular Surgery - fistula, Other - Clipping of brain aneurysm. Within 2015. - Immunizations Hx Diphtheria, Pertussis, Tetanus Vaccination: Yes - unk Review of Systems - Review of Systems Constitutional: See HPI EENT: No symptoms reported Cardiovascular: See HPI Respiratory: See HPI Gastrointestinal: See HPI Genitourinary: No symptoms reported Male Genitourinary: No symptoms reported Musculoskeletal: See HPI Skin: No symptoms reported Hematologic/Lymphatic: No symptoms reported Neurological/Psychological: No symptoms reported Physical Exam - Vital signs Vitals: Temp Pulse Resp BP Pulse Ox 98.1 F 102 H 19 144/84 H 97 12/28/18 04:25 12/28/18 04:25 12/28/18 04:25 12/28/18 04:25 12/28/18 04:25 - Notes Notes: PHYSICAL EXAMINATION: Reviewed vital signs and charting by RN GENERAL: Alert, interacts well. No acute distress. HEAD: Normocephalic, atraumatic. EYES: Pupils equal and round. Extraocular movements intact. ENT: Oral mucosa moist, tongue midline. NECK: Full range of motion. Trachea midline. LUNGS: Clear to auscultation bilaterally, no wheezes, rales, or rhonchi. No respiratory distress. HEART: Regular rate and rhythm. No murmur ABDOMEN: soft, non-tender. No distention. Bowel sounds present BACK: L CVAT EXTREMITIES: Moves all 4 extremities spontaneously. No edema, No cyanosis. PSYCH: Normal affect, normal mood. SKIN: Warm, dry, normal turgor. No rashes or lesions noted. Course - Re-evaluation Re-evalutation: 12/28/18 08:32 Patient presentation consistent with probable pyelonephritis. Urinalysis showed 17 WBCs and 100 protein. Patient does have history of microscopic hematuria. Plan is to get a CT abdomen pelvis with out to ensure there is no nephroli thiasis or potential for an obstructing, infected kidney stone. 12/28/18 09:35 No evidence of Tonya or hydronephrosis. Symptoms most consistent with a pyelonephritis but could also represent PCOS. Plan is to give patient Rocephin 250 mg IM once in the emergency department and then start him on Keflex 250 mg every 24 hours for 7 days. Patient is stable for discharge as he is afebrile and shows no evidence of systemic infection. - Vital Signs Vital signs: Temp Pulse Resp BP Pulse Ox 98.1 F 102 H 19 144/84 H 97 12/28/18 04:25 12/28/18 04:25 12/28/18 04:25 12/28/18 04:25 12/28/18 04:25 - Laboratory Result Diagrams: 12/28/18 05:20 12/28/18 05:20 Laboratory results interpreted by me: 12/28/18 12/28/18 12/28/18 05:20 05:20 05:20 RDW 16.2 H Plt Count 131 L Seg Neutrophils % 78.4 H Lymphocytes % 10.1 L Chloride 97 L BUN 50 H Creatinine 7.95 H Est GFR ( Amer) 9 L Est GFR (Non-Af Amer) 8 L Calcium 7.8 L Direct Bilirubin 0.5 H Alkaline Phosphatase 413 H Urine Protein 100 H Urine Glucose (UA) 50 H Urine Blood MODERATE H Ur Leukocyte Esterase SMALL H Discharge - Discharge Clinical Impression: Pyelonephritis, End stage renal disease, PCK (polycystic kidney disease) Condition: Good Disposition: HOME, SELF-CARE Additional Instructions: You have been diagnosed with a condition called pyelonephritis which is an infec tion involving your kidneys and bladder. You have been given a dose of antibiotics here in the emergency department to help begin to treat this infection. Your also being sent home on antibiotics. Please start taking these later on today when you fill the prescription. Complete the course even if you feel better. Please return if you have persistent vomiting, pass out, have worsening pain, become unable to tolerate fluids, or have any other symptoms that are concerning to you. Please follow-up with your primary care physician in the next 24-48 hours. Referrals: Olegario MAYBERRY MD [Primary Care Provider] - Follow up as needed
--- NOTE | 2018-12-28 09:18 | RADIOLOGY REPORT (SQ) ---
EXAM DESCRIPTION: CT ABD/PELVIS NO ORAL OR IV COMPLETED DATE/TIME: 12/28/2018 8:46 am REASON FOR STUDY: L flank pain assess for kidney stone COMPARISON: Renal ultrasound 02/11/2015 TECHNIQUE: CT scan of the abdomen and pelvis performed without intravenous or oral contrast. Images reviewed with lung, soft tissue, and bone windows. Reconstructed coronal and sagittal MPR images revi ewed. All images stored on PACS. All CT scanners at this facility use dose modulation, iterative reconstruction, and/or weight based d osing when appropriate to reduce radiation dose to as low as reasonably achievable (ALARA). [facility]: Dose Right [facility]: CareDose [facility]: Dose Right [facility]: Teradose 4D [facility]: [employer] RADIATION DOSE: CT Rad equipment meets quality standard of care and radiation dose reduction techniq ues were employed. CTDIvol: 18.1 mGy. DLP: 1090 mGy-cm.mGy. LIMITATIONS: None. FINDINGS: The patient has adult polycystic kidney disease. Renal parenchyma is near completely repl aced by innumerable cysts, many of which are high in density from old hemorrhage. Although there are calcifications in both kidneys, no ureteral calculi or hydronephrosis is seen. No perinephric stranding. LOWER CHEST: No significant findings. No nodules or infiltrates. NON-CONTRASTED LIVER, SPLEEN, ADRENALS: Evaluation limited by lack of IV contrast. No identified sign ificant masses. PANCREAS: No masses. No peripancreatic inflammatory changes. GALLBLADDER: No identified stones by CT criteria. No inflammatory changes to suggest cholecystitis. RIGHT AND LEFT KIDNEY AND URETER: As above AORTA AND RETROPERITONEUM: No aneurysm. No retroperitoneal masses or adenopathy. BOWEL AND PERITONEAL CAVITY: No obvious masses or inflammatory changes. No free fluid. APPENDIX: Normal. PELVIS, BLADDER, AND ABDOMINAL WALL:No abnormal masses. No free fluid. Bladder normal. BONES: No significant findings. OTHER: No other significant finding. IMPRESSION: Adult polycystic kidney disease No gross hydronephrosis or hydroureter. No ureteral calculi. COMMENT: Quality ID # [id number]: Final reports with documentation of one or more dose reduction techniques (e.g., Automated exposure control, adjustment of the mA and/or kV according to patient size, use of iterative reconstruction technique) TECHNICAL DOCUMENTATION: JOB ID: [id number]- All Rights Reserved Reading location - IP/workstation name: [email or web address]
[2018-12-28] MEDS ORDERED: LIDOCAINE 1% INJ (10 MG/ML) 10 ML MDV INJ ONE (09:37)
[2018-12-28] MEDS ORDERED: ACETAMINOPHEN 325 MG TABLET PO ONE (09:37)
[2018-12-28] MEDS ORDERED: HYDROCODONE/ACETAMINOPHEN 5-325 MG TABLET PO ONE (09:37)
[2018-12-28] MEDS ORDERED: CEFTRIAXONE INJ 250 MG VIAL IM ONE (09:37)
[2018-12-28 10:04] VITALS: BP 137/84
== END 2018-12-28 10:05 | disposition home or self-care (01) ==
LOC: ER 04:22
DX: N12 Tubulo-interstitial nephritis, not specified as acute or chronic (principal); N18.6 End stage renal disease; Q61.2 Polycystic kidney, adult type; Z99.2 Dependence on renal dialysis; R10.9 Unspecified abdominal pain
CPT/HCPCS: 99284; 96372; 36415; 83690; 85025; 80053; 81001; 74176; A9270 ×2; J0696

== ENCOUNTER 2020-05-25 19:49 | Emergency (ER) | payer MEDICARE, MEDICAID ==
[2020-05-25] MEDS ORDERED: ACETAMINOPHEN 325 MG TABLET PO ONE (20:51)
[2020-05-25 22:05] LABS: ALBUMIN 4.5 g/dL (3.5-5.0); ALKALINE PHOSPHATASE 83 U/L (38-126); ANION GAP 16 (5-19); ASPARTATE AMINO TRANSFERASE 20 U/L (17-59); BILIRUBIN,DIRECT 0.3 mg/dL (0.0-0.4); BILIRUBIN,TOTAL 0.8 mg/dL (0.2-1.3); BLOOD UREA NITROGEN 70 mg/dL (7-20); CARBON DIOXIDE 27 mmol/L (22-30); CHLORIDE 93 mmol/L (98-107); GLUCOSE 113 mg/dL (75-110); POTASSIUM 4.6 mmol/L (3.6-5.0); TOTAL PROTEIN 7.7 g/dL (6.3-8.2)
[2020-05-25 22:15] LABS: HEMATOCRIT 45.6 % (37.9-51.0); HEMOGLOBIN 15.8 g/dL (13.5-17.0); MEAN CORPUSCULAR HEMOGLOBIN 32.7 pg (27.0-33.4); MEAN CORPUSCULAR HGB CONC 34.7 g/dL (32.0-36.0); MEAN CORPUSCULAR VOLUME 94 fl (80-97); PLATELET COUNT 171 10^3/uL (150-450); RED BLOOD COUNT 4.84 10^6/uL (4.35-5.55); WHITE BLOOD COUNT 13.4 10^3/uL (4.0-10.5)
--- NOTE | 2020-05-25 22:18 | RADIOLOGY REPORT (SQ) ---
EXAM DESCRIPTION: CT ABD/PELVIS NO ORAL OR IV CLINICAL HISTORY: 40 years Male; Flank pain pelvic pain, esrd on dialysis TECHNIQUE: CT of the abdomen and pelvis without intravenous contrast.. Oral contrastWas not used. All CT scans at this facility use dose modulation, iterative reconstruction, and/or weight based dosing when appropriate to reduce radiation dose to as low as reasonably achievable. This exam was performed according to our department optimization program which includes automated exposure control, adjustment of the mA and/or kv according to patient size and/or use of iterative reconstruction technique. COMPARISON: Unenhanced CT scan of the abdomen and pelvis 12/28/2018 FINDINGS: Lower chest:The lung bases are clear. The visualized portion of heart and great vessels are normal. Abdomen: Liver and biliary tree: The unenhanced liver and gallbladder are unremarkable. Pancreas: Normal Spleen:Within normal limits Kidneys: The kidneys are enlarged and contain innumerable small cysts. Many of these have peripheral calcifications. The right kidney measures 19.5 cm in length. The left kidney measures 19.3 cm. The overall appearance is similar to the previous exam. Some of the cysts are hyperdense. No ureteral stones. No hydronephrosis. Adrenal glands:Within normal limits Vascular structures:Within normal limits Retroperitoneum: No mass or lymphadenopathy Abdominal wall: normal GI: Diverticula is present throughout the bowel. In the sigmoid colon at the level of the left anterior iliac crest there is focal inflammation in the bowel with soft tissue stranding seen in the pericolonic fat and minimal associated fluid. No abscess. No perforation. Findings are consistent with acute diverticulitis. No bowel obstruction. Appendix: The appendix appears normal. General: No free air. No free fluid Pelvis: Lymph nodes: No mass or lymphadenopathy Bladder: Unremarkable. Pelvis: No pelvic mass or adenopathy. Bones: No acute bone findings. IMPRESSION: 1. Enlarged kidneys bilaterally with innumerable cysts consistent with polycystic kidney disease. No ureteral stones. No hydronephrosis. 2. Diverticulosis. There is extensive inflammation in the sigmoid colon with bowel wall thickening consistent with acute diverticulitis. No abscess or perforation.
[2020-05-25 22:27] LABS: APPEARANCE,URINE CLEAR; BILIRUBIN,URINE NEGATIVE (NEGATIVE); COLOR,URINE STRAW; GLUCOSE, URINE 50 mg/dL (NEGATIVE); KETONES,URINE NEGATIVE (NEGATIVE); LEUKOCYTE ESTERASE,URINE SMALL (NEGATIVE); NITRITE,URINE NEGATIVE (NEGATIVE); PROTEIN,URINE 30 mg/dL (NEGATIVE); URINE SPECIFIC GRAVITY 1.008; UROBILINOGEN,URINE NEGATIVE mg/dL (<2.0)
--- NOTE | 2020-05-25 22:27 | ER Document Report ---
ED GI/ - General Chief Complaint: Abdominal Pain Stated Complaint: LOWER ABDOMINAL PAIN/BACK PAIN Time Seen by Provider: 05/25/20 20:47 Primary Care Provider: Olegario MAYBERRY MD [Primary Care Provider] - Follow up as needed Notes: 40-year-old man presenting to the emergency department with a complaint of pain in the suprapubic region which began today. He has had a history of UTIs in the past he also has a history of renal failure states that he is not allergic to any antibiotics or medications. He denies a history of kidney stones. Patient has a history of hemodialysis. States that he has had UTIs in the past and symptoms feel very similar. TRAVEL OUTSIDE OF THE [place] IN LAST 30 DAYS: No - Related Data Allergies/Adverse Reactions: No Known Allergies Allergy (Verified 02/15/17 17:53) Home Medications: Sensipar, calcium acetate, arixia. Past Medical History - Social History Smoking Status: Never Smoker Frequency of alcohol use: None Drug Abuse: None Family History: None, Reviewed & Not Pertinent Patient has homicidal ideation: No - Past Medical History Cardiac Medical History: Reports: Hx Hypertension - HX OF Denies: Hx Coronary Artery Disease, Hx Heart Attack Pulmonary Medical History: Denies: Hx Asthma, Hx Bronchitis, Hx COPD, Hx Pneumonia Neurological Medical History: Denies: Hx Cerebrovascular Accident, Hx Seizures Renal/ Medical History: Reports: Hx End Stage Renal Disease, Hx Hemodialysis. Denies: Hx Peritoneal Dialysis Musculoskeletal Medical History: Denies Hx Arthritis Psychiatric Medical History: Denies: Hx Depression Past Surgical History: Reports: Hx Herniorrhaphy, Hx Vascular Surgery - fistula, Other - Clipping of brain aneurysm. Within 2016. - Immunizations Hx Diphtheria, Pertussis, Tetanus Vaccination: Yes - unk Review of Systems - Review of Systems Notes: Constitutional: Negative for fever. HENT: Negative for sore throat. Eyes: Negative for visual changes. Cardiovascular: Negative for chest pain. Respiratory: Negative for shortness of breath. Gastrointestinal: Negative for abdominal pain, vomiting or diarrhea. Genitourinary: See HPI Musculoskeletal: Negative for back pain. Skin: Negative for rash. Neurological: Negative for headaches, weakness or numbness. 10 point ROS negative except as marked above and in HPI. Physical Exam - Vital signs Vitals: Temp Pulse Resp BP Pulse Ox 98.0 F 98 18 127/81 H 99 05/25/20 20:27 05/25/20 20:27 05/25/20 20:27 05/25/20 20:27 05/25/20 20:27 - Notes Notes: PHYSICAL EXAMINATION: Physical Exam: General: Well-nourished well-developed in no acute distress HEENT: NC/AT, pupils equal round and reactive to light, MM moist,nares clear, oropharynx clear, airway patent Neck: supple, no adenopathy, no masses. Good range of motion Lungs: clear, no wheezing, no rales no rhonchi CVS: Regular rate and rhythm no murmur gallop or rub Abdomen: Soft, active, suprapubic tenderness, no masses, no hepatosplenomegaly Ext: No edema, clubbing or cyanosis. Neuro: Alert and responsive, moving all 4 extremities on command, cranial nerves intact, no focal findings Skin: Intact no open lesions, no rash Course - Vital Signs Vital signs: Temp Pulse Resp BP Pulse Ox 98.0 F 98 18 127/81 H 99 05/25/20 20:27 05/25/20 20:27 05/25/20 20:27 05/25/20 20:27 05/25/20 20:27 - Laboratory Result Diagrams: 05/25/20 21:21 05/25/20 21:21 Laboratory results interpreted by me: 05/25/20 05/25/20 05/25/20 21:21 21:21 21:58 WBC 13.4 H RDW 16.0 H Seg Neuts % (Manual) 92 H Lymphocytes % (Manual) 5 L Monocytes % (Manual) 2 L Abs Neuts (Manual) 12.3 H Sodium 135.7 L Chloride 93 L BUN 70 H Creatinine 11.27 H Est GFR ( Amer) 6 L Est GFR (MDRD) Non-Af 5 L Glucose 113 H Urine Protein 30 H Urine Glucose (UA) 50 H Urine Blood SMALL H Ur Leukocyte Esterase SMALL H 05/25/20 23:42 I have reviewed laboratory data and used this information for the treatment decisions regarding the patient. - Diagnostic Test Radiology reviewed: Image reviewed, Reports reviewed Radiology results interpreted by me: 05/25/20 23:42 Abdomen/Pelvis CT 05/25/20 20:50 IMPRESSION: 1. Enlarged kidneys bilaterally with innumerable cysts consistent with polycystic kidney disease. No ureteral stones. No hydronephrosis. 2. Diverticulosis. There is extensive inflammation in the sigmoid colon with bowel wall thickening consistent with acute diverticulitis. No abscess or perforation. Discharge - Discharge Clinical Impression: End-stage renal disease on hemodialysis Urinary tract infection Qualifiers: Urinary tract infection type: site unspecified Hematuria presence: with hematuria Qualified Code(s): N39.0 - Urinary tract infection, site not specified; R31.9 - Hematuria, unspecified Condition: Good Disposition: HOME, SELF-CARE Instructions: Urinary Tract Infection ([facility]) Additional Instructions: You were seen in the emergency department tonight with symptoms of a urinary tract infection. You were given an IV dose of antibiotics and a prescription for oral antibiotics to be taken after dialysis every other day for 7 days. Please push fluids and use Tylenol for pain. Follow-up with your [facility] physician as needed If symptoms are worsening or if you have other concerns you may return to the emergency department for further evaluation and treatment HOME CARE INSTRUCTIONS & INFORMATION: Thank you for choosing us for your medical needs. We hope you're satisfied with the care you received. After you leave, you must properly care for your problem and, at the same time, observe its progress. Any condition can change. Some illnesses can change rapidly over hours or days. If your condition worsens, return to the Emergency Department or see your physician promptly. ABOUT YOUR X-RAYS AND EKG'S: If you had an EKG or X-rays taken, they have been read by the Emergency Physician. The X-rays and EKG's will also be read by a Radiologist or Solar Installer Technician within 24 hours. If discrepancies are noted, you will be notified by telephone. Please be certain the ED has a correct telephone number & address where you can be reached. Also, realize that some fractures or abnormalities do not show up on initial X-rays. If your symptoms continue, see your physician. ABOUT YOUR LABORATORY TEST: If you had laboratory tests, the results have been reviewed by the Emergency Physician. Some test results (for example cultures) may not be available for several days. You will be contacted if any test result shows you need additional treatment. Please be certain the ED has a correct telephone number and address where you can be reached. ABOUT YOUR MEDICATIONS: You will receive instructions on how to take your medicine on the prescription label you receive. Additional information may be provided by the Pharmacy. If you have questions afterwards, call the ED for clarification or further instructions. Some prescribed medications may cause drowsiness. Do not perform tasks such as driving a car or operating machinery without consulting your Pharmacist. If you feel you need a refill of pain medication, your condition will need re-evaluation. Please do not call for a refill of any medication. ABOUT YOUR SIGNATURE: Signature of this document acknowledges to followin. Understanding that you received emergency treatment and that you may be released before al medical problems are known or treated. Please be certain the ED has a correct phone number & address where you can be reached. 2. Acknowledgement that you will arrange for follow-up care as recommended. 3. Authorization for the Emergency Physician to provide information to your follow-up Physician in order to maximize your care. AT ANY TIME, IF YOUR SYMPTOMS CHANGE SIGNIFICANTLY OR WORSEN OR YOU DEVELOP NEW SYMPTOMS, RETURN TO THE EMERGENCY DEPARTMENT IMMEDIATELY FOR RE-EVALUATION. OUR GOAL IS TO PROVIDE EXCELLENT MEDICAL CARE! WE HOPE THAT WE HAVE MET YOUR EXPECTATIONS DURING YOUR EMERGENCY DEPARTMENT VISIT AND THAT YOU FEEL YOU HAVE RECEIVED EXCELLENT CARE! Prescriptions: Cefdinir 300 mg PO ASDIR #4 capsule Referrals: Olegario MAYBERRY MD [Primary Care Provider] - Follow up as needed
[2020-05-25 22:28] LABS: ABSOLUTE LYMPHOCYTES# (MANUAL) 0.7 10^3/uL (0.5-4.7); ABSOLUTE MONOCYTES # (MANUAL) 0.3 10^3/uL (0.1-1.4); BASOPHILS % (MANUAL) 1 % (0-2); EOSINOPHILS % (MANUAL) 0 % (0-6); LYMPHOCYTES % (MANUAL) 5 % (13-45); MONOCYTES % (MANUAL) 2 % (3-13); SEGMENTED NEUTROPHILS % (MAN) 92 % (42-78); TOTAL CELLS COUNTED 100
[2020-05-25 22:30] LABS: ANISOCYTOSIS SLIGHT; OVALOCYTES SLIGHT; PLATELET COMMENT ADEQUATE; POIKILOCYTOSIS SLIGHT; TOXIC GRANULATION 1+; TOXIC VACUOLATION PRESENT
[2020-05-25] MEDS ORDERED: CEFTRIAXONE INJ 1000 MG VIAL IV ONE (23:17)
[2020-05-26 00:10] VITALS: BP 125/72
== END 2020-05-26 00:10 | disposition home or self-care (01) ==
LOC: ER 19:49
DX: N39.0 Urinary tract infection, site not specified (principal); R31.9 Hematuria, unspecified; I12.0 Hypertensive chronic kidney disease with stage 5 chronic kidney disease or end stage renal disease; N18.6 End stage renal disease; Z99.2 Dependence on renal dialysis; K52.9 Noninfective gastroenteritis and colitis, unspecified; Q61.02 Congenital multiple renal cysts; K57.90 Diverticulosis of intestine, part unspecified, without perforation or abscess without bleeding; Z79.01 Long term (current) use of anticoagulants
CPT/HCPCS: 99285; 96365; 36415; 87086; 85025; 80053; 81001; 74176; A9270; J0696